=== PATIENT | male | born 1985 | race African-American/Black ===

== ENCOUNTER → 2016-11-13 07:40 | Emergency (ER) | payer SELFPAY ==
[2016-11-13 07:45] VITALS: BP 143/90
[2016-11-13 08:29] LABS: Hematocrit 49 % (42-52); Hemoglobin 16.7 g/dl (14.0-18.0); Mean Corpuscular HGB Conc 34 g/dl (31-36); Mean Corpuscular Hemoglobin 30 pg (27-31); Mean Corpuscular Volume 88 fL (80-94); Mean Platelet Volume 9 um3 (7.4-10.4); Red Cell Distribution Width 13 % (10.5-15); White Blood Count 8.4 10^3/ul (3.5-10.8)
[2016-11-13 08:37] LABS: Urine Bilirubin Negative (Negative); Urine Glucose Negative (Negative); Urine Nitrite Negative (Negative)
[2016-11-13 08:41] LABS: ALT 197 U/L (7-52); AST 184 U/L (13-39); Albumin 4.5 g/dL (3.2-5.2); Alkaline Phosphatase 89 U/L (34-104); Anion Gap 11 mmol/L (2-11); BUN/Creatinine Ratio 5.5 (8-20); Blood Urea Nitrogen 4 mg/dL (6-24); CO2 Carbon Dioxide 23 mmol/L (22-32); Calcium 9.4 mg/dL (8.6-10.3); Chloride 101 mmol/L (101-111); EGFR African American 163.4 (>60); Globulin 3.8 g/dL (2-4); Glucose 108 mg/dL (70-100); Potassium 3.7 mmol/L (3.5-5.0); Sodium 135 mmol/L (133-145); Total Protein 8.3 g/dL (6.4-8.9)
[2016-11-13 08:49] LABS: Benzodiazepine Urine Screen None Detected (None Detect)
[2016-11-13 09:01] LABS: Acetaminophen < 15 mcg/mL; Alcohol 229 mg/dL (<10); Salicylate < 2.50 mg/dL (<30)
[2016-11-13 09:09] LABS: TSH (Thyroid Stimulating Horm) 1.73 mcIU/mL (0.34-5.60)
--- NOTE | 2016-11-13 20:59 | ED ---
David العراقي Billy, scribed for Junior Rios MD on 11/13/16 at 0759 . Psychiatric Complaint - HPI Summary HPI Summary: Patient is a 31 year-old male coming to [facility] with [facility] for a mental health evaluation. He states that he is going through a rough breakup with his girlfriend at this time, and is having suicidal ideation without a specific plan. He denies any previous suicidal attempts, but he reports a history of self -cutting as a child. He has a history of anxiety. - History Of Current Complaint Chief Complaint: EDMentalHealth Time Seen by Provider: 11/13/16 07:54 Hx Obtained From: Patient Onset/Duration: Gradual Onset, Lasting Hours Timing: Constant Severity Initially: Moderate Severity Currently: Moderate Character: Depressed Aggravating Factor(s): Recent Stress Alleviating Factor(s): Nothing Associated Signs And Symptoms: Positive: Negative Has Suicidal: Reports: Thoughts. Denies: With A Plan - Allergies/Home Medications Allergies/Adverse Reactions: Allergies Allergy/AdvReac Type Severity Reaction Status Date / Time No Known Allergies Allergy Verified 12/21/15 16:38 Home Medications: Home Medications NK [No Home Medications Reported] 11/13/16 [History Confirmed 11/13/16] PMH/Surg Hx/FS Hx/Imm Hx Endocrine/Hematology History: Denies: Hx Diabetes, Hx Thyroid Disease Respiratory History: Reports: Hx Asthma Psychiatric History: Reports: Hx Anxiety Infectious Disease History: No Infectious Disease History: Denies: Traveled Outside the [place] in Last 30 Days - Family History Known Family History: Negative: Cardiac Disease, Hypertension, Diabetes - Social History Alcohol Use: Occasionally Substance Use Type: Reports: None Smoking Status (MU): Light Every Day Tobacco Smoker Review of Systems Negative: Fever Psychological: Other - See HPI for details. All Other Systems Reviewed And Are Negative: Yes Physical Exam - Summary Physical Exam Summary: VITAL SIGNS: Reviewed. GENERAL: Patient is a well developed and nourished male who is lying comfortable in the stretcher. Patient is not in any acute respiratory distress. He has alcohol in his breath. HEAD AND FACE: No signs of trauma. No ecchymosis, hematomas or skull depressions. No sinus tenderness. EYES: PERRLA, EOMI x 2, No injected conjunctiva, no nystagmus. EARS: Hearing grossly intact. Ear canals and tympanic membranes are within normal limits. MOUTH: Oropharynx within normal limits. NECK: Supple, trachea is midline, no adenopathy, no JVD, no carotid bruit, no c- spine tenderness, neck with full ROM. CHEST: Symmetric, no tenderness at palpation LUNGS: Clear to auscultation bilaterally. No wheezing or crackles. CVS: Regular rate and rhythm, S1 and S2 present, no murmurs or gallops appreciated. ABDOMEN: Soft, non-tender. No signs of distention. No rebound no guarding, and no masses palpated. Bowel sounds are normal. EXTREMITIES: FROM in all major joints, no edema, no cyanosis or clubbing. NEURO: Alert and oriented x 3. No acute neurological deficits. Speech is normal and follows commands. SKIN: Dry and warm PSYCH: Depressed, positive suicidal thoughts and plan. No homicidal thoughts or plan. No signs of psychosis or pressure speech. No tangential speech. Triage Information Reviewed: Yes Vital Signs On Initial Exam: Initial Vitals Temp Pulse Resp BP Pulse Ox 98.2 F 115 20 143/90 96 11/13/16 07:42 11/13/16 07:42 11/13/16 07:42 11/13/16 07:42 11/13/16 07:42 Vital Signs Reviewed: Yes Diagnostics - Vital Signs Vital Signs Temp Pulse Resp BP Pulse Ox 11/13/16 07:45 98.1 F 123 20 143/90 96 11/13/16 07:42 98.2 F 115 20 143/90 96 - Laboratory Lab Results: Lab Results 11/13/16 11/13/16 11/13/16 Range/Units 08:15 08:15 08:20 WBC 8.4 (3.5-10.8) 10^3/ul RBC 5.60 H (4.0-5.4) 10^6/ul Hgb 16.7 (14.0-18.0) g/dl Hct 49 (42-52) % MCV 88 (80-94) fL MCH 30 (27-31) pg MCHC 34 (31-36) g/dl RDW 13 (10.5-15) % Plt Count 335 (150-450) 10^3/ul MPV 9 (7.4-10.4) um3 Neut % (Auto) 66.3 (38-83) % Lymph % (Auto) 22.3 L (25-47) % [place] % (Auto) 10.2 H (1-9) % Eos % (Auto) 0.6 (0-6) % Baso % (Auto) 0.6 (0-2) % Absolute Neuts (auto) 5.6 (1.5-7.7) 10^3/ul Absolute Lymphs (auto) 1.9 (1.0-4.8) 10^3/ul Absolute Monos (auto) 0.9 H (0-0.8) 10^3/ul Absolute Eos (auto) 0.1 (0-0.6) 10^3/ul Absolute Basos (auto) 0 (0-0.2) 10^3/ul Absolute Nucleated RBC 0 10^3/ul Nucleated RBC % 0 Sodium 135 (133-145) mmol/L Potassium 3.7 (3.5-5.0) mmol/L Chloride 101 (101-111) mmol/L Carbon Dioxide 23 (22-32) mmol/L Anion Gap 11 (2-11) mmol/L BUN 4 L (6-24) mg/dL Creatinine 0.73 (0.67-1.17) mg/dL Est GFR ( Amer) 163.4 (>60) Est GFR (Non-Af Amer) 127.0 (>60) BUN/Creatinine Ratio 5.5 L (8-20) Glucose 108 H (70-100) mg/dL Calcium 9.4 (8.6-10.3) mg/dL Total Bilirubin 0.90 (0.2-1.0) mg/dL AST 184 H (13-39) U/L ALT 197 H (7-52) U/L Alkaline Phosphatase 89 (34-104) U/L Total Protein 8.3 (6.4-8.9) g/dL Albumin 4.5 (3.2-5.2) g/dL Globulin 3.8 (2-4) g/dL Albumin/Globulin Ratio 1.2 (1-3) TSH 1.73 (0.34-5.60) mcIU/mL Urine Color Straw Urine Appearance Clear Urine pH 5.0 (5-9) Ur Specific [place] 1.003 L (1.010-1.030) Urine Protein Negative (Negative) Urine Ketones Negative (Negative) Urine Blood Negative (Negative) Urine Nitrate Negative (Negative) Urine Bilirubin Negative (Negative) Urine Urobilinogen Negative (Negative) Ur Leukocyte Esterase Negative (Negative) Urine Glucose Negative (Negative) Salicylates < 2.50 (<30) mg/dL Urine Opiates Screen (None Detect) Acetaminophen < 15 mcg/mL Ur Barbiturates Screen (None Detect) Ur Phencyclidine Scrn (None Detect) Ur Amphetamines Screen (None Detect) U Benzodiazepines Scrn (None Detect) Urine Cocaine Screen (None Detect) U Cannabinoids Screen (None Detect) Serum Alcohol 229 H (<10) mg/dL 11/13/16 Range/Units 08:20 WBC (3.5-10.8) 10^3/ul RBC (4.0-5.4) 10^6/ul Hgb (14.0-18.0) g/dl Hct (42-52) % MCV (80-94) fL MCH (27-31) pg MCHC (31-36) g/dl RDW (10.5-15) % Plt Count (150-450) 10^3/ul MPV (7.4-10.4) um3 Neut % (Auto) (38-83) % Lymph % (Auto) (25-47) % [place] % (Auto) (1-9) % Eos % (Auto) (0-6) % Baso % (Auto) (0-2) % Absolute Neuts (auto) (1.5-7.7) 10^3/ul Absolute Lymphs (auto) (1.0-4.8) 10^3/ul Absolute Monos (auto) (0-0.8) 10^3/ul Absolute Eos (auto) (0-0.6) 10^3/ul Absolute Basos (auto) (0-0.2) 10^3/ul Absolute Nucleated RBC 10^3/ul Nucleated RBC % Sodium (133-145) mmol/L Potassium (3.5-5.0) mmol/L Chloride (101-111) mmol/L Carbon Dioxide (22-32) mmol/L Anion Gap (2-11) mmol/L BUN (6-24) mg/dL Creatinine (0.67-1.17) mg/dL Est GFR ( Amer) (>60) Est GFR (Non-Af Amer) (>60) BUN/Creatinine Ratio (8-20) Glucose (70-100) mg/dL Calcium (8.6-10.3) mg/dL Total Bilirubin (0.2-1.0) mg/dL AST (13-39) U/L ALT (7-52) U/L Alkaline Phosphatase (34-104) U/L Total Protein (6.4-8.9) g/dL Albumin (3.2-5.2) g/dL Globulin (2-4) g/dL Albumin/Globulin Ratio (1-3) TSH (0.34-5.60) mcIU/mL Urine Color Urine Appearance Urine pH (5-9) Ur Specific [place] (1.010-1.030) Urine Protein (Negative) Urine Ketones (Negative) Urine Blood (Negative) Urine Nitrate (Negative) Urine Bilirubin (Negative) Urine Urobilinogen (Negative) Ur Leukocyte Esterase (Negative) Urine Glucose (Negative) Salicylates (<30) mg/dL Urine Opiates Screen None detected (None Detect) Acetaminophen mcg/mL Ur Barbiturates Screen None detected (None Detect) Ur Phencyclidine Scrn None detected (None Detect) Ur Amphetamines Screen None detected (None Detect) U Benzodiazepines Scrn None detected (None Detect) Urine Cocaine Screen None detected (None Detect) U Cannabinoids Screen None detected (None Detect) Serum Alcohol (<10) mg/dL Result Diagrams: 11/13/16 08:15 11/13/16 08:15 Lab Statement: Any lab studies that have been ordered have been reviewed, and results considered in the medical decision making process. Course/Dx - Course Assessment/Plan: Patient is a 31 year-old male coming to [facility] with [facility] for a mental health evaluation. He states that he is going through a rough breakup with his girlfriend at this time, and is having suicidal ideation without a specific plan. He denies any previous suicidal attempts, but he reports a history of self-cutting as a child. He has a history of anxiety. Bloodwork WNL except for increased AST, ALT(possible secondary to chronic alcohol use), and increased serum alcohol. The patient was medically clear and awaiting MHE. He was evaluated by Dr. Desir in the psychiatric unit who determined that the patient could be discharged home. - Differential Dx/Clinical Impression Differential Diagnosis/HQI/PQRI: Positive: Anxiety, Depression, Suicidal Ideation Provider Diagnosis: mood disorder NOS Discharge - Discharge Plan Condition: Stable Disposition: HOME Referrals: Junior Finney MD [Primary Care Provider] - The documentation as recorded by the David garcia Billy accurately reflects the service I personally performed and the decisions made by me, Junior Rios MD.
== END | disposition home or self-care (01) ==
LOC: ED 07:40
DX: F39 Unspecified mood [affective] disorder (principal); F17.210 Nicotine dependence, cigarettes, uncomplicated
CPT/HCPCS: 36415; 80053; 80307; 80320; 80329; 81003; 84443; 85025; 99283; G0480

== ENCOUNTER → 2018-10-04 22:17 | Emergency (ER) | payer OTHER ==
--- NOTE | 2018-10-04 23:10 | ED ---
Laceration/Wound HPI - HPI Summary HPI Summary: 33-year-old male presents with right finger laceration today. He states he cut it on a can. Area continues to bleed. has full range of motion his finger. His tetanus is up-to-date. Has no medical conditions. no numbness or tingling. No other injury. 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 denies any foreign body. - History of Current Complaint Stated Complaint: FINGER LACERATION PER PT Time Seen by Provider: 10/04/18 22:23 Pain Intensity: 0 - Allergy/Home Medications Allergies/Adverse Reactions: Allergies Allergy/AdvReac Type Severity Reaction Status Date / Time No Known Allergies Allergy Verified 12/21/15 16:38 Home Medications: Home Medications Albuterol HFA INHALER* [Ventolin HFA Inhaler*] 1 puff INH Q4H PRN 10/04/18 [ History Confirmed 10/04/18] PMH/Surg Hx/FS Hx/Imm Hx Endocrine/Hematology History: Denies: Hx Diabetes, Hx Thyroid Disease Respiratory History: Reports: Hx Asthma Psychiatric History: Reports: Hx Anxiety Denies: Hx Eating Disorder, Hx of Violent Episodes Against Others - Immunization History Date of Tetanus Vaccine: unknown Date of Influenza Vaccine: none Infectious Disease History: No Infectious Disease History: Denies: Traveled Outside the [place] in Last 30 Days - Family History Known Family History: Positive: None Negative: Cardiac Disease, Hypertension, Diabetes - Social History Alcohol Use: Daily Substance Use Type: Reports: None Smoking Status (MU): Former Smoker Review of Systems Negative: Fever Negative: Chest Pain Negative: Shortness Of Breath Positive: Other - laceration right middle finger All Other Systems Reviewed And Are Negative: Yes Physical Exam Triage Information Reviewed: Yes Vital Signs On Initial Exam: Initial Vitals Temp Pulse Resp BP Pulse Ox 98.7 F 96 19 131/87 100 10/04/18 22:26 10/04/18 22:26 10/04/18 22:26 10/04/18 22:26 10/04/18 22:26 Vital Signs Reviewed: Yes Appearance: Positive: Well-Appearing Skin: Positive: Warm, Dry, Other - 2cm by 1cm laceration to dorsum of proximal phalanx of right middle finger Head/Face: Positive: Normal Head/Face Inspection Eyes: Positive: Normal, Conjunctiva Clear ENT: Positive: Pharynx normal Respiratory/Lung Sounds: Positive: Clear to Auscultation, Breath Sounds Present Cardiovascular: Positive: Normal, RRR Musculoskeletal: Positive: Strength/ROM Intact - right middle finger, Other - capillary refill<2 secs Neurological: Positive: Normal Psychiatric: Positive: Normal Procedures - Laceration/Wound Repair 1 Location: Other - right middle finger Description: Linear Anesthesia: Digital, 1.0% Length, Depth and Shape: 2cm by 1cm laceration to dorsum of proximal phalanx of right middle finger Irrigated w/ Saline (ccs): 300 Closure: Single Layer Suture Type: Prolene Number of Sutures: 3 Sterile Dressing Applied?: No - telfa and coband with foam splint for finger Diagnostics - Vital Signs Vital Signs Temp Pulse Resp BP Pulse Ox 10/04/18 22:26 98.7 F 96 19 131/87 100 - Laboratory Lab Statement: Any lab studies that have been ordered have been reviewed, and results considered in the medical decision making process. Laceration Repair Course/Dx - Course Course Of Treatment: 33-year-old male presents with right finger laceration today. He states he cut it on a can. Area continues to bleed. has full range of motion his finger. His tetanus is up-to-date. Has no medical conditions. no numbness or tingling. No other injury. 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 On exam 2 centimeter by 1 cm laceration of dorsum of ring finger. Performed digital block. Clean area and place [address] coband with a foam finger splint. Told to keep area clean and dry. Patient understands and agrees with plan. - Differential Dx Differental Diagnoses: Abrasion, Avulsion, Laceration - Clinical Impression Provider Diagnoses: Laceration of right middle finger Discharge - Sign-Out/Discharge Documenting (check all that apply): Patient Departure Patient Received Moderate/Deep Sedation with Procedure: No - Discharge Plan Condition: Good Disposition: HOME Patient Education Materials: [facility] Your St[facility] (ED) Forms: *Work Release Referrals: Junior Finney MD [Primary Care Provider] - Additional Instructions: Keep area in splint, change dressing once a day for next two days at least Keep area clean and dry for24 hours Take Tylenol or ibuprofen for pain every 6 hours Return to ED or primary for suture removal in 8-10 days Return to ED if develop signs of infection such as fever, spreading redness, or pus formation - Billing Disposition and Condition Condition: GOOD Disposition: Home
--- OUTSIDE RECORDS SUMMARY | 2018-10-04 23:21 | XMS REPORT | Continuity of Care Document ---
:1985 External Reference #:[id number] Author Name KaliMarlonAshley Care Team Providers Name Role Phone Mo Dunham MD Primary Care Physician Unavailable Payers Date Identification Numbers Payment Provider Subscriber Expires: 2015 Policy Number: [id number] [employer] Radha Gardiner PayID: [id number] [address] [address] [place] [address] Effective: 2018 Policy Number: [id number] [employer] Radha Gardiner PayID: [id number] [address] [place] [address] Advance Directives Description No Information Available Problems Date Description Provider Status Onset: 07/18/2014 Asthma Arsen Shafer M.D. Active Onset: 09/07/2014 Liver enzymes abnormal Arsen Shafer M.D. Active Family History Date Family Member(s) Observation Comments Father 51 Mother 47 Social History Type Date Description Comments Sex Unknown Marital Status Single Lives With Alone Occupation [employer] ETOH Use Drinks 1 Alcoholic Beverage Per Day Recreational Drug Use Former Drug User Marijuana x 4-5 years. Tobacco Use Start: Unknown End: Patient is a former Quit in Jun 2017; 1 Unknown smoker pack every 3 weeks. Began age 26 Smoking Status Reviewed: 09/29/18 Patient is a former Quit in Jun 2017; 1 smoker pack every 3 weeks. Began age 26 Exercise Type/Frequency Bikes daily Allergies, Adverse Reactions, Alerts Description No Known Drug Allergies Medications Medication Date Status Form Strength Qnty SIG Indications Ordering Provider Lidocaine Active Solution 2% 200ml swish and J06.9 Junior E. Viscous 019 spit 15cc Sharmin, up to M.D. three times a day as needed Proair HFA 0 Active Aerosol 108(90Base) 1units 2 puffs Junior E. 000 mcg/Act by mouth Sharmin, every 4 M.D. hours as needed Immunizations Description No Information Available Vital Signs Date Vital Result Comment 09/29/2018 10:55am Height 63.5 inches 5'3.50" Weight 173.38 lb Heart Rate 91 /min BP Systolic 131 mmHg BP Diastolic 85 mmHg Body Temperature 97.8 F O2 % BldC Oximetry 97 % BMI (Body Mass Index) 30.2 kg/m2 10/16/2015 5:23pm Weight 163.00 lb Heart Rate 99 /min BP Systolic Sitting 123 mmHg BP Diastolic Sitting 73 mmHg Body Temperature 97.9 F 09/07/2014 2:35pm Height 64.75 inches 5'4.75" Weight 172.12 lb Heart Rate 98 /min BP Systolic Sitting 112 mmHg BP Diastolic Sitting 78 mmHg Body Temperature 97.8 F O2 % BldC Oximetry 99 % BMI (Body Mass Index) 28.9 kg/m2 07/06/2014 2:58pm Height 64.75 inches 5'4.75" Weight 167.00 lb Heart Rate 70 /min BP Systolic 110 mmHg BP Diastolic 70 mmHg Body Temperature 97.7 F O2 % BldC Oximetry 99 % BMI (Body Mass Index) 28.0 kg/m2 Results Test Date Facility Test Result H/L Range Note Laboratory test Director Ambulatory In House Rapid Group A Negative finding 9 Strep Laboratory test [facility] Culture SEE RESULT 1, 2 finding [address] [place] [address] [phone] Hepatitis Acute [facility] Hepatitis B Nonreactive N Nonreactive Panel [address] [place] [address] Antigen [phone] Hepatitis B Core IgM Nonreactive N Nonreactive Hepatitis A AB IgM Nonreactive N Nonreactive Hepatitis C Antibody Nonreactive N Nonreactive Lipid Profile 10/13/2014 [facility] Triglycerides 151 mg/dL N 3, 4 (Trig/Chol/HDL) [address] [place], [place] [id number] [phone] Cholesterol 281 mg/dL N 5 HDL Cholesterol 59.2 mg/dL N 6 LDL Cholesterol 192 mg/dL N 7 CBC Auto Diff 09/05/2014 White Blood Count 7.6 10^3/uL N 4.8-10.8 Red Blood Count 4.95 10^6/uL N 4.0-5.4 Hemoglobin 15.6 g/dL N 14.0-18.0 Hematocrit 45 % N 42-52 Mean Corpuscular Volume 91 fL N 80-94 Mean Corpuscular Hemoglobin 32 pg High 27-31 Mean Corpuscular HGB Conc 35 g/dL N 31-36 Red Cell Distribution Width 13 % N 10.5-15 Platelet Count 267 10^3/uL N 150-450 Mean Platelet Volume 9 um3 N 7.4-10.4 Abs Neutrophils 4.8 10^3/uL N 1.5-7.7 Abs Lymphocytes 1.6 10^3/uL N 1.0-4.8 Abs Monocytes 1.0 10^3/uL High 0-0.8 Abs Eosinophils 0.2 10^3/uL N 0-0.6 Abs Basophils 0 10^3/uL N 0-0.2 Abs Nucleated RBC 0 10^3/uL N Granulocyte % 62.6 % N 38-83 Lymphocyte % 21.0 % Low 25-47 Monocyte % 13.5 % High 1-9 Eosinophil % 2.3 % N 0-6 Basophil % 0.6 % N 0-2 Nucleated Red Blood Cells % 0 N Comp Metabolic Panel 09/05/2014 Sodium 137 mmol/L N 133-145 Potassium 4.2 mmol/L N 3.5-5.0 Chloride 103 mmol/L N 101-111 Co2 Carbon Dioxide 27 mmol/L N 22-32 Anion Gap 7 mmol/L N 2-11 Glucose 97 mg/dL N 70-100 Blood Urea Nitrogen 11 mg/dL N 6-24 Creatinine 0.79 mg/dL N 0.67-1.17 BUN/Creatinine Ratio 13.9 N 8-20 Calcium 9.9 mg/dL N 8.6-10.3 Total Protein 7.4 g/dL N 6.4-8.9 Albumin 4.5 g/dL N 3.2-5.2 Globulin 2.9 g/dL N 2-4 Albumin/Globulin Ratio 1.6 N 1-3 Total Bilirubin 0.90 mg/dL N 0.2-1.0 Alkaline Phosphatase 67 U/L N 34-104 Alt 233 U/L High 7-52 Ast 122 U/L High 13-39 Egfr Non- 117.7 N >60 Egfr 151.3 N >60 8 Laboratory test finding 09/05/2014 TSH (Thyroid Stimulating 3.29 IU/mL N 0.34-5.60 Horm) Urinalysis Profile 09/05/2014 Urine Color Yellow N Urine Appearance Clear N Urine Specific [place] 1.023 N 1.010-1.030 Urine pH 5.0 N 5-9 Urine Urobilinogen Negative N Negative Urine Ketones Negative N Negative Urine Protein Negative N Negative Urine Leukocytes Negative N Negative Urine Blood Negative N Negative Urine Nitrite Negative N Negative Urine Bilirubin Negative N Negative Urine Glucose Negative N Negative 1 [id number] 2 SEE RESULT BELOW Name: RADHA GARDINER : [address]: Radha Nguyen MD Acct: [id number] Unit: [id number] AGE: 30 Location: [facility] Re12/21/15 SEX: M Status: DEP ER SPEC: [id number] BRIGIDO: 12/21/15-[address]: Donny MERRILL REQ: [id number] RECD: 12/22/15-6571 STATUS: JONATHAN DANGELO DR: Radha Finney III, MD _ SOURCE: THROAT SPDESC: ORDERED: Throat Culture COMMENTS: [id number] Procedure Result Reported Site Throat Culture Final 12/24/15- 1011 ML Organism 1 NORMAL LAWSON Quantity 2+ Throat cultures are clinically indicated to detect the presence of group A strep, arcanobacterium and yeast. In certain cases, predominating organisms will be reported. * ML - MAIN LAB ([facility]) . END OF REPORT * ML=Testing performed at Main Lab DEPARTMENT OF PATHOLOGY, [address] [place] [address] Claude Bell M.D. Director [facility] # [id number] 3 PT IS FASTING 4 Desirable <150 Borderline high 150-199 High 200-499 Very High >500 5 Desirable <200 Borderline high 200-239 High >239 6 Low <40 Desirable: 40-60 High: >60 7 Desirable: <100 mg/dL Near Optimal: 100-129 mg/dL Borderline High: 130-159 mg/dL High: 160-189 mg/dL Very High: >189 mg/dL 8 Because ethnic data is not always readily available, this report includes an eGFR for both -Americans and non- Americans. The National Kidney Disease Education Program (NKDEP) does not endorse the use of the MDRD equation for patients that are not between the ages of 18 and 70, are , have extremes of body size, muscle mass, or nutritional status, or are non- or non-. According to the National Kidney Foundation, irrespective of diagnosis, the stage of the disease is based on the level of kidney function: Stage Description GFR(mL/min/1.73 m(2)) 1 Kidney damage with normal or decreased GFR 90 2 Kidney damage with mild decrease in GFR 60-89 3 Moderate decrease in GFR 30-59 4 Severe decrease in GFR 15-29 5 Kidney failure <15 (or dialysis) Procedures Description No Information Available Encounters Type Date Location Provider Dx Diagnosis Office Visit 10/16/2015 [facility] Junior Mata S93.402A Sprain of 5:00p Sheila Finney M.D. unspecified ligament of left ankle, init encntr Office Visit 09/07/2014 [facility] Arsen Shafer, 493.90 Asthma Unspec W /O 2:20p Medicine - [place] Andrew Status Asthmaticus Rd 465.9 URI Upper Respiratory Infections Acute Unspec Sites 794.8 Liver Study Abnormal 305.00 Alcohol Abuse Unspec 369.20 Vision Low Both Eyes Impairment Level Not Further Spec 278.00 Obesity Unspec Office Visit 07/06/2014 3:00p [facility] Arsen Shafer, 493.90 Asthma Unspec W/O Medicine M.DJevon Status Asthmaticus 305.00 Alcohol Abuse Unspec 278.00 Obesity Unspec Plan of Treatment 09/29/2018 - Junior Finney M.D.J06.9 Acute upper respiratory infection, unspecifiedNew Medication:Lidocaine Viscous 2 % - swish and spit 15cc up to three times a day as needed
[2018-10-04 23:45] VITALS: BP 0/0
== END | disposition home or self-care (01) ==
LOC: ED 22:17
DX: S61.212A Laceration without foreign body of right middle finger without damage to nail, initial encounter (principal); W26.8XXA Contact with other sharp object(s), not elsewhere classified, initial encounter; Y93.9 Activity, unspecified; Y92.9 Unspecified place or not applicable; Z87.891 Personal history of nicotine dependence
CPT/HCPCS: 12001; 99283